=== PATIENT | female | born 1935 | race Caucasian/White ===

== ENCOUNTER 2017-02-02 09:56 | Inpatient (IN) | payer MEDICARE, OTHER ==
--- NOTE | ~2017-02-02 | EGD ---
EGD REPORT [facility] [address] [place]. [address] NAME: NÉSTOR DEL CID : 37 STATUS : ADM IN PAT#: [id number] AGE: 81 ADM/REG DATE : 02/02/17 MR#: [id number] REPORT SERV DATE: 02/04/17 DICTATED BY: EAN HERRERA DATE: 02/04/17 REPORT STATUS : Draft TRANSCRIBED BY: [facility] DATE: 02/04/17 Endoscopy Center Patient Name: Néstor Del Cid Date of : 1935 Attending MD: EAN HERRERA MD Procedure Date No Time: 02/04/2017 Procedure: Upper GI endoscopy Indications: Iron deficiency anemia Referring MD: GURU MARTINEZ Medicines: Propofol per Anesthesia Complications: No immediate complications. Procedure: Pre-Anesthesia Assessment: - ASA Grade Assessment: III - A patient with severe systemic disease. After obtaining informed consent, the endoscope was passed under direct vision. Throughout the procedure, the patient's blood pressure, pulse, and oxygen saturations were monitored continuously. The GIF H190 [id number] was introduced through the mouth, and advanced to the fourth part of duodenum. The upper GI endoscopy was accomplished without difficulty. The patient tolerated the procedure well. Findings: Non-severe esophagitis with no bleeding was found at the gastroesophageal junction. The entire examined stomach was normal. The examined duodenum was normal. Impression: - Non-severe non-erosive esophagitis. - Normal stomach. - Normal examined duodenum. Procedure Code(s): --- Professional --- 43201, Esophagogastroduodenoscopy, flexible, transoral; diagnostic, including collection of specimen(s) by brushing or washing, when performed (separate procedure) Diagnosis Code(s): --- Professional --- K20.8, Other esophagitis D50.9, Iron deficiency anemia, unspecified CPT copyright 2013 [employer]. All rights reserved. EGD REPORT [address] [address] NAME: NÉSTOR DEL CID : 37 STATUS : ADM IN [facility]#: [id number] AGE: 81 ADM/REG DATE : 02/02/17 MR#: [id number] REPORT SERV DATE: 02/04/17 DICTATED BY: EAN HERRERA. DATE: 02/04/17 REPORT STATUS : Draft TRANSCRIBED BY: [employer] DATE: 02/04/17 The codes documented in this report are preliminary and upon patch sander review may be revised to meet current compliance requirements. Ean Herrera MD EAN HERRERA MD 02/04/2017 10:17 AM This report has been signed electronically. Number of Addenda: 1 Note Initiated On: 02/04/2017 9:26 AM Scope Withdrawal Time 0 hours 0 minutes 0 seconds Addendum Number: 1 Addendum Date: 02/04/2017 10:20 AM small bowel biopsy done Ean Herrera MD EAN HERRERA MD 02/04/2017 10:21 AM This report has been signed electronically. [address] [place] [id number]
--- NOTE | ~2017-02-02 | CN ---
Consultation Report [facility] [address] [place]. [address] NAME: NÉSTOR BAINS : 37 STATUS : ADM IN [facility]#: [id number] AGE: 81 ADM/REG DATE : 02/02/17 MR#: [id number] REPORT SERV DATE: 02/05/17 DICTATED BY: EAN HERRERA DATE: 02/03/17 REPORT STATUS : Draft TRANSCRIBED BY: MODL DATE: 02/03/17 CONSULTATION DATE OF CONSULTATION: HISTORY OF PRESENT ILLNESS: This 81-year-old white female known to have a hemoglobin of 4 and was sent to Emergency Room for admission. She had iron levels that were normal. Hemoglobin was normal, but it had apparently been 12 and 10.5 range. EGD was done in September by Dr. Olivera. She was admitted with atrial fibrillation here. She is on meloxicam daily. Last colonoscopy 2003. There were some positive blood levels for celiac disease. She is post hysterectomy. She does not smoke cigarettes. PHYSICAL EXAMINATION: GENERAL: Looks much younger than stated age. CHEST: Clear. CARDIAC: Normal. ABDOMEN: Soft, nontender. IMPRESSION: 1. Severe anemia, mildly microcytic. 2. History of nonsteroidal use. So, I need to be concerned about gastrointestinal blood loss from nonsteroidal use, apparently could be even small bowel blood loss also. PLAN: Suggest EGD, small bowel biopsy, and colonoscopy. MG/ARTUR Ean Herrera M.D. / [id number] CC: Gilberto Tracy M.D.
--- NOTE | ~2017-02-02 | HP ---
History And Physical [place] [id number] [facility] [place]. [address] NAME: NÉSTOR BAINS : 37 STATUS : ADM IN [facility]#: [id number] AGE: 81 ADM/REG DATE : 02/02/17 MR#: [id number] REPORT SERV DATE: 02/02/17 DICTATED BY: LUIS CARLOS CARLOS DATE: 02/02/17 REPORT STATUS : Draft TRANSCRIBED BY: MODJoya DATE: 02/02/17 DATE OF ADMISSION: 02/02/2017 ATTENDING PHYSICIAN: Dr. Silas Peres. REASON FOR ADMISSION: Acute blood loss anemia and rapid atrial fibrillation. HISTORY: This is an 81-year-old, white female, who was in Dr. Oksana Gannon's office in [place] yesterday with weakness in her legs. She yury some lab work who found her hemoglobin to be 4 and sent her to the emergency room for admission. In the emergency room, she had been seen by Dr. Farzad Mukherjee and passed to ok for admission to the hospital. She says the legs have been numb and weak for the last couple of weeks. She started having shortness of breath, dyspnea on exertion, and heart beating fast when she walked to the mailbox, which is not far according to the family. She had iron levels that were normal and hemoglobin that was normal but had gone down from 12 to the 10.5 range. She had an EGD done by Dr. Olivera in September but it was unrevealing. She has been taking care of her who has leukemia and has been taking transfusions and had swelling in her ankles for the last couple weeks as well. On presentation to the emergency room here, Dr. Mukherjee found that she had atrial fibrillation with a rapid ventricular response slowly at rest. Her heart rate in the 120 range and worried about her blood pressure dropping. Limited some of her rate-controlling medicines that they were considering. PAST MEDICAL HISTORY: She has had bilateral knee joint replacements by Dr. Kosta Haywood in the past when talking about a hip joint replacement. She has arthritis in her hands. 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 HOME MEDICATIONS: Include the followin. Meloxicam 15 mg p.o. daily. 2. Levothyroxine 88 mcg p.o. daily. 3. Ondansetron 4 mg as needed for nausea. 4. Nexium 40 mg p.o. daily. 5. Clonazepam 0.5 mg p.o. b.i.d. p.r.n. anxiety. 6. Mometasone 0.1% applied twice a day to rash. 7. Docusate sodium for constipation. 8. Tramadol 50 mg 4 times a day as needed for pain. 9. Lyrica 100 mg p.o. b.i.d. 10.Xalatan 0.005% one drop each eye at bedtime. 11.Triamcinolone cream as needed. She has had some history of anxiety and depression in the past; thyroid problems; irritable bowel syndrome; indigestion; arthritis. Colonoscopy in 2003. Biopsies negative. CT scan of the abdomen by barium swallow in 2009. She has celiac disease by blood levels in June History And Physical [address] [address] NAME: NÉSTOR BAINS : 37 STATUS : ADM IN [facility]#: [id number] AGE: 81 ADM/REG DATE : 02/02/17 MR#: [id number] REPORT SERV DATE: 02/02/17 DICTATED BY: LUIS CARLOS CARLOS DATE: 02/02/17 REPORT STATUS : Draft TRANSCRIBED BY: ARTUR DATE: 02/02/172002 and history of influenza, osteoporosis, and Dr. Argueta has been following her for that. SURGICAL HISTORY: She has had a hysterectomy by Dr. Taylor Mcmanus in the past and BSO; gallbladder surgery in 1999; bilateral knee joint replacements in 2006; carpal tunnel release 2008, Dr. Manning; second toe surgery Dr. Calderón in [facility]. SOCIAL HISTORY: She has 4 children who are alive and well. They live in [place]. She does not attend mu-ism. She does not smoke cigarettes or take any alcohol. Never smoked. Lives in [place]. She had worked in a greenhouse in the past. She drinks water. Never drank alcohol or used drugs. FAMILY HISTORY: Her mother at age 58 of renal cancer. Her father at age 58 of liver cancer from alcoholism; stepfather raised her. She had a brother at 80 with CABG, brother 76, and another brother with cancer. Mother and maternal grandmother of cancer. Her paternal grandmother lived to be 97. REVIEW OF SYSTEMS: She does have chest pain with exertion and now she is comfortable. At this time, no abdominal pain. No unilateral weakness. No fits, seizures, or convulsions. She has had no weight loss, fever, chills, or night sweats. No abdominal pain. She has had some melena recently. No vomiting. The remainder of the review of systems is negative except as above. PHYSICAL EXAMINATION: VITAL SIGNS: Her blood pressure was 114/70 with a heart rate of 109, respiratory rate 18, afebrile. HEENT: EOMI. Sclerae clear. Conjunctivae pale. NECK: No bruit without any JVD. CHEST: Clear. HEART: Irregularly irregular rapid and hyperdynamic. ABDOMEN: Soft and nontender. Bowel sounds positive. EXTREMITIES: Have edema, trace to 1+. Distal pulses are intact with dorsalis pedis posterior tibial. NEUROLOGIC: She does withdraw to plantar stimulation. Certified Orthotist Practice Manager is symmetric bilaterally. Coordination intact. She has no tremor. EXTREMITIES: She does have Heberden's nodes and Jhon's nodes in the right hand with deformity of her digits from the degenerative joint disease in the right hand. Left hand is relatively spared. LABORATORY: Type and screen O negative. Creatinine of 1.35, BUN 22, sodium 142, potassium 4.1, calcium 8.4, albumin is 3.4 with a globulin of 3.0. Liver tests were normal. Hemoglobin 4.2, hematocrit 13.8, white count 4.8, MCV is 78.9 with a platelet count of 214, protime 16 with an INR of 1.4. The monitor shows atrial fibrillation with a rapid ventricular response. Review of the EKG showed nonspecific ST and T-wave changes but no acute abnormality. History And Physical [address] [address] NAME: NÉSTOR BAINS : 37 STATUS : ADM IN [facility]#: [id number] AGE: 81 ADM/REG DATE : 02/02/17 MR#: [id number] REPORT SERV DATE: 02/02/17 DICTATED BY: LUIS CARLOS CARLOS DATE: 02/02/17 REPORT STATUS : Draft TRANSCRIBED BY: MODL DATE: 02/02/17 ASSESSMENT: 1. Gastrointestinal bleeding. Stomach likely. 2. Atrial fibrillation rapid ventricular response with exertion. 3. Angina pectoris with exertion likely from anemia. 4. Degenerative joint disease, hands, hip, left elbow, and with bilateral knee joint replacement with Dr. Haywood. 5. Weakness secondary to acute blood loss anemia. 6. Chronic problems listed above. PLAN: 2 units of red cells. Initially we will start digoxin afterwards as we did not want to lower the blood pressure because of the low blood count and blood loss. We will get Dr. Olivera to follow as he knows her primarily. DB/MODL Luis Carlos Carlos M.D. / [id number] CC: DO Oksana Garcia M.D. John Nash, M.D. Matthew Bagamery, M.D.
--- NOTE | ~2017-02-02 | EGD ---
EGD REPORT [facility] [address] [place]. [address] NAME: NÉSTOR DEL CID : 37 STATUS : ADM IN PAT#: [id number] AGE: 81 ADM/REG DATE : 02/02/17 MR#: [id number] REPORT SERV DATE: 02/04/17 DICTATED BY: EAN HERRERA DATE: 02/04/17 REPORT STATUS : Draft TRANSCRIBED BY: [facility] DATE: 02/04/17 Endoscopy Center Patient Name: Néstor Del Cid Date of : 1935 Attending MD: EAN HERRERA MD Procedure Date No Time: 02/04/2017 Procedure: Upper GI endoscopy Indications: Iron deficiency anemia Referring MD: GURU MARTINEZ Medicines: Propofol per Anesthesia Complications: No immediate complications. Procedure: Pre-Anesthesia Assessment: - ASA Grade Assessment: III - A patient with severe systemic disease. After obtaining informed consent, the endoscope was passed under direct vision. Throughout the procedure, the patient's blood pressure, pulse, and oxygen saturations were monitored continuously. The GIF H190 [id number] was introduced through the mouth, and advanced to the fourth part of duodenum. The upper GI endoscopy was accomplished without difficulty. The patient tolerated the procedure well. Findings: Non-severe esophagitis with no bleeding was found at the gastroesophageal junction. The entire examined stomach was normal. The examined duodenum was normal. Impression: - Non-severe non-erosive esophagitis. - Normal stomach. - Normal examined duodenum. Procedure Code(s): --- Professional --- 83976, Esophagogastroduodenoscopy, flexible, transoral; diagnostic, including collection of specimen(s) by brushing or washing, when performed (separate procedure) Diagnosis Code(s): --- Professional --- K20.8, Other esophagitis D50.9, Iron deficiency anemia, unspecified CPT copyright 2013 [place] [employer]. All rights reserved. EGD REPORT [facility] [address] [place] [address] [place]. [address] NAME: NÉSTOR DEL CID : 37 STATUS : ADM IN [facility]#: [id number] AGE: 81 ADM/REG DATE : 02/02/17 MR#: [id number] REPORT SERV DATE: 02/04/17 DICTATED BY: EAN HERRERA. DATE: 02/04/17 REPORT STATUS : Draft TRANSCRIBED BY: [employer] SERVICES DATE: 02/04/17 The codes documented in this report are preliminary and upon water resource manager review may be revised to meet current compliance requirements. Ean Herrera MD EAN HERRERA MD 02/04/2017 10:17 AM This report has been signed electronically. Number of Addenda: 0 Note Initiated On: 02/04/2017 9:26 AM Scope Withdrawal Time 0 hours 0 minutes 0 seconds [address] [facility] [place] [address]
--- NOTE | ~2017-02-02 | DS ---
Discharge Summary [place] [address] [facility] [place]. [address] NAME: NÉSTOR BAINS : 37 STATUS : DIS IN PAT#: [id number] AGE: 81 ADM/REG DATE : 02/02/17 MR#: [id number] REPORT SERV DATE: 02/06/17 DICTATED BY: LUIS CARLOS CHIN DATE: 02/05/17 REPORT STATUS : Draft TRANSCRIBED BY: MODL DATE: 02/05/17 ADMISSION DATE: 02/02/2017 DISCHARGE DATE: 02/05/2017 DISCHARGE DIAGNOSES: 1. Gastrointestinal bleeding, uncertain etiology at discharge. Outpatient capsule endoscopy to be performed by Dr. Salinas. 2. Severe acute blood loss anemia with admission hemoglobin of 4.2. 3. Paroxysmal atrial fibrillation on presentation with rapid ventricular response. Sinus rhythm at discharge. No anticoagulation at discharge pending capsule endoscopy. 4. Elevated BNP level with echocardiographic findings, normal left ventricular systolic function with EF of 55% to 60%, dilated left atrium, normal right ventricular chamber size and systolic function, mild mitral regurgitation, and moderate pulmonary hypertension with moderate tricuspid regurgitation. Outpatient followup with Dr. Dee planned. 5. Acute kidney injury, present on admission. 6. Chronic kidney disease 3. 7. Iron deficiency with serum ferritin of 18 on 12/07/2016, lab. 8. Osteoarthritis, status post bilateral total knee arthroplasty. 9. Chronic pain syndrome. 10.Chronic nonsteroidal anti-inflammatory drug use. Discontinued at discharge. 11.Hypothyroid, on Synthroid replacement. 12.Systemic hypertension. 13.Anxiety, on chronic benzodiazepines. 14.Hypernatremia, present on admission. 15.Hypokalemia. 16.History of asthma. 17.Edema associated with present illness at least 4 weeks' duration. OPERATIONS AND PROCEDURES: 1. Upper GI endoscopy on 02/04/2017, Dr. Salinas. 2. Colonoscopy on 02/04/2017, Dr. Salinas. PRESENT ILLNESS: This is an 81-year-old white female, who was triaged in the emergency room on 02/02/2017, at 0956 hours complaining of weakness, fatigue, and shortness of breath. Admission vital signs, blood pressure 113/73, temperature 97.7, pulse 147, respirations 22, and O2 saturation 98%. After evaluation in the emergency room, she was found to have a hemoglobin of 4.2, and to be in atrial fibrillation with a rapid ventricular response. She was referred to the Hospitalist Service for admission. She was seen by Dr. Luis Carlos Angulo, and admitted as described on admission history and physical examination. Additional history was that she had been seen in Dr. Oksana Gannon's office because of leg weakness. Her hemoglobin had been drawn and had been near 4. She was referred here. Discharge Summary [address] [address] NAME: NÉSTOR BAINS : 37 STATUS : DIS IN PAT#: [id number] AGE: 81 ADM/REG DATE : 02/02/17 MR#: [id number] REPORT SERV DATE: 02/06/17 DICTATED BY: LUIS CARLOS CHIN DATE: 02/05/17 REPORT STATUS : Draft TRANSCRIBED BY: ARTUR DATE: 02/05/17 She had been having leg numbness and weakness with dyspnea on exertion, tachypalpitations, and edema for the last several weeks. ADDITIONAL HISTORY: Per Dr. Angulo. PHYSICAL EXAMINATION: Per Dr. Angulo. ADMISSION LABORATORY: Per Dr. Angulo. HOSPITAL COURSE: She was admitted by Dr. Angulo with: 1. Gastrointestinal bleeding. 2. Atrial fibrillation with rapid ventricular response. 3. Angina pectoris with exertion, likely from anemia. 4. All of this occurring in the setting of the above-mentioned comorbidities. She was admitted to [address] [place] [address]. Red blood cell resuscitation was initiated. GI consultation was obtained. She spontaneously reverted to sinus rhythm. She maintained sinus rhythm on no medical therapy. An echocardiogram was done with findings as noted above. She had no chest pain post-transfusion therapy and less dyspnea on exertion. Her daughter works in the labeling associate and arrangements will be made for the patient to see Dr. Dee in the outpatient setting. She was transfused with 3 units of packed red blood cells. Her hemoglobin increased to 8.6. It was 8.1 at discharge. Given her iron deficiency, she was given IV Nulecit, which she tolerated well. She was seen in GI consultation by Dr. Salinas. Endoscopic evaluation was recommended. A Protonix drip had been started on admission. On 02/04/2017, she was taken to the endoscopy lab. An upper GI endoscopy showed non-severe esophagitis with no bleeding at the GE junction. The stomach and exam of duodenum were normal. A colonoscopy was performed. The terminal ilium was normal. There were multiple medium mouthed diverticula in the sigmoid colon. No other abnormalities were identified. Post endoscopy, Dr. Salinas recommended diet advancement, no NSAIDs, an outpatient capsule study, and discharge. She was seen by the undersigned on 02/03/2017, 02/04/2017, and 02/05/2017. It was decided post endoscopy on 02/04/2017, to keep her overnight to monitor her rhythm, obtain an echocardiogram and follow up hemoglobin. She remained in sinus rhythm. Her echocardiographic findings were as noted. Her hemoglobins are as noted. Discharge Summary [address] [place]. [address] NAME: NÉSTOR BAINS : 37 STATUS : DIS IN PAT#: [id number] AGE: 81 ADM/REG DATE : 02/02/17 MR#: [id number] REPORT SERV DATE: 02/06/17 DICTATED BY: LUIS CARLOS CHIN DATE: 02/05/17 REPORT STATUS : Draft TRANSCRIBED BY: ARTUR DATE: 02/05/17 On 02/05/2017, she had no nausea or pain. She was ambulatory. Her dyspnea on exertion was less, and she was not having chest pain. She wanted to be discharged with outpatient followup. It was felt she had achieved a level of improvement and stability where she could be safely discharged to home with outpatient followup to see Dr. Gannon in 72 hours for CBC and BMP. She will see Dr. Salinas for capsule endoscopy and follow up with Dr. Dee for further Cardiology evaluation. She was asked to follow a low-sodium diet. MEDICATIONS AT DISCHARGE: Colace 100 mg daily, Synthroid 88 mcg daily, Lyrica 100 mg twice daily, Dexilant 30 mg daily plus additional Nexium 40 mg daily for heartburn, Klonopin 0.5 mg twice daily as needed, multivitamin daily, calcium with vitamin D and K daily, Lasix 40 mg daily plus potassium 20 mEq twice daily, and Ambien at bedtime as needed. She was asked not to use any Mobic or other NSAIDs. DISCHARGE TIME: Greater than 30 minutes. DICTATED BY: Luis Carlos Chin M.D. DD/ARTUR Luis Carlos Chin M.D. / [id number] CC: Gilberto Tracy M.D. Michael Goodman, M.D. Van Stephen Monroe Jr., M.D.
--- NOTE | ~2017-02-02 | EGD ---
EGD REPORT [facility] [address] [place]. [address] NAME: NÉSTOR DEL CID : 37 STATUS : ADM IN PAT#: [id number] AGE: 81 ADM/REG DATE : 02/02/17 MR#: [id number] REPORT SERV DATE: 02/04/17 DICTATED BY: EAN HERRERA DATE: 02/04/17 REPORT STATUS : Draft [facility]ANS[facility]IBED [facility]: [facility] DATE: 02/04/17 Endoscopy Center Patient Name: Néstor Del Cid Date of : 1935 Attending MD: EAN HERRERA MD Procedure Date No Time: 02/04/2017 Procedure: Upper GI endoscopy Indications: Iron deficiency anemia Referring MD: GURU MARTINEZ Medicines: Propofol per Anesthesia Complications: No immediate complications. Procedure: Pre-Anesthesia Assessment: - ASA Grade Assessment: III - A patient with severe systemic disease. After obtaining informed consent, the endoscope was passed under direct vision. Throughout the procedure, the patient's blood pressure, pulse, and oxygen saturations were monitored continuously. The GIF H190 [id number] was introduced through the mouth, and advanced to the fourth part of duodenum. The upper GI endoscopy was accomplished without difficulty. The patient tolerated the procedure well. Findings: Non-severe esophagitis with no bleeding was found at the gastroesophageal junction. The entire examined stomach was normal. The examined duodenum was normal. Impression: - Non-severe non-erosive esophagitis. - Normal stomach. - Normal examined duodenum. Procedure Code(s): --- Professional --- 17324, Esophagogastroduodenoscopy, flexible, transoral; diagnostic, including collection of specimen(s) by brushing or washing, when performed (separate procedure) Diagnosis Code(s): --- Professional --- K20.8, Other esophagitis D50.9, Iron deficiency anemia, unspecified CPT copyright 2013 [employer] [place] [employer]. All rights reserved. EGD REPORT [address] [address] NAME: NÉSTOR DEL CID : 37 STATUS : ADM IN [facility]#: [id number] AGE: 81 ADM/REG DATE : 02/02/17 MR#: [id number] REPORT SERV DATE: 02/04/17 DICTATED BY: EAN HERRERA. DATE: 02/04/17 REPORT STATUS : Draft TRANSCRIBED BY: [employer] SERVICES DATE: 02/04/17 The codes documented in this report are preliminary and upon community service representative review may be revised to meet current compliance requirements. Ean Herrera MD EAN HERRERA MD 02/04/2017 10:17 AM This report has been signed electronically. Number of Addenda: 1 Note Initiated On: 02/04/2017 9:26 AM Scope Withdrawal Time 0 hours 0 minutes 0 seconds Addendum Number: 1 Addendum Date: 02/04/2017 10:20 AM small bowel biopsy done Ean Herrera MD EAN HERRERA MD 02/04/2017 10:21 AM This report has been signed electronically. [address] [place] [id number]
--- NOTE | ~2017-02-02 | EGD ---
EGD REPORT [facility] [address] [place]. [address] NAME: NÉSTOR DEL CID : 37 STATUS : DIS IN PAT#: [id number] AGE: 81 ADM/REG DATE : 02/02/17 MR#: [id number] REPORT SERV DATE: 03/14/17 DICTATED BY: EAN HERRERA DATE: 03/14/17 REPORT STATUS : Draft [facility]IBED [facility]: [facility] DATE: 03/14/17 Endoscopy Center Patient Name: Néstor Del Cid Date of : 1935 Attending MD: EAN HERRERA MD Procedure Date No Time: 02/04/2017 Procedure: Upper GI endoscopy Indications: Iron deficiency anemia Referring MD: GURU MARTINEZ Medicines: Propofol per Anesthesia Complications: No immediate complications. Procedure: Pre-Anesthesia Assessment: - ASA Grade Assessment: III - A patient with severe systemic disease. After obtaining informed consent, the endoscope was passed under direct vision. Throughout the procedure, the patient's blood pressure, pulse, and oxygen saturations were monitored continuously. The GIF H190 [id number] was introduced through the mouth, and advanced to the fourth part of duodenum. The upper GI endoscopy was accomplished without difficulty. The patient tolerated the procedure well. Findings: Non-severe esophagitis with no bleeding was found at the gastroesophageal junction. The entire examined stomach was normal. The examined duodenum was normal. Impression: - Non-severe non-erosive esophagitis. - Normal stomach. - Normal examined duodenum. Procedure Code(s): --- Professional --- 41699, Esophagogastroduodenoscopy, flexible, transoral; diagnostic, including collection of specimen(s) by brushing or washing, when performed (separate procedure) Diagnosis Code(s): --- Professional --- K20.8, Other esophagitis D50.9, Iron deficiency anemia, unspecified CPT copyright 2013 [employer]. All rights reserved. EGD REPORT [address] [place]. [address] NAME: NÉSTOR DEL CID : 37 STATUS : DIS IN PAT#: [id number] AGE: 81 ADM/REG DATE : 02/02/17 MR#: [id number] REPORT SERV DATE: 03/14/17 DICTATED BY: EAN HERRERA. DATE: 03/14/17 REPORT STATUS : Draft TRANSCRIBED BY: [employer] DATE: 03/14/17 The codes documented in this report are preliminary and upon medical biller/coder review may be revised to meet current compliance requirements. Ean Herrera MD EAN HERRERA MD 02/04/2017 10:17 AM This report has been signed electronically. Number of Addenda: 2 Note Initiated On: 02/04/2017 9:26 AM Scope Withdrawal Time 0 hours 0 minutes 0 seconds Addendum Number: 2 Addendum Date: 03/14/2017 11:42 AM Biopsy of the duodenum was taken for celiac disease Ean Herrera MD EAN HERRERA MD 03/14/2017 11:43 AM This report has been signed electronically. Addendum Number: 1 Addendum Date: 02/04/2017 10:20 AM small bowel biopsy done Ean Herrera MD EAN HERRERA MD 02/04/2017 10:21 AM This report has been signed electronically. [address] [place] [address]
--- NOTE | ~2017-02-02 | EGD ---
EGD REPORT [facility] [address]. [address] NAME: NÉSTOR DEL CID : 37 STATUS : ADM IN PAT#: [id number] AGE: 81 ADM/REG DATE : 02/02/17 MR#: [id number] REPORT SERV DATE: 02/04/17 DICTATED BY: EAN HERRERA DATE: 02/04/17 REPORT STATUS : Draft [facility]: [facility] DATE: 02/04/17 Endoscopy Center Patient Name: Néstor Del Cid Date of : 1935 Attending MD: EAN HERRERA MD Procedure Date No Time: 02/04/2017 Procedure: Upper GI endoscopy Indications: Iron deficiency anemia Referring MD: GURU MARTINEZ Medicines: Propofol per Anesthesia Complications: No immediate complications. Procedure: Pre-Anesthesia Assessment: - ASA Grade Assessment: III - A patient with severe systemic disease. After obtaining informed consent, the endoscope was passed under direct vision. Throughout the procedure, the patient's blood pressure, pulse, and oxygen saturations were monitored continuously. The GIF H190 [id number] was introduced through the mouth, and advanced to the fourth part of duodenum. The upper GI endoscopy was accomplished without difficulty. The patient tolerated the procedure well. Findings: Non-severe esophagitis with no bleeding was found at the gastroesophageal junction. The entire examined stomach was normal. The examined duodenum was normal. Impression: - Non-severe non-erosive esophagitis. - Normal stomach. - Normal examined duodenum. Procedure Code(s): --- Professional --- 08519, Esophagogastroduodenoscopy, flexible, transoral; diagnostic, including collection of specimen(s) by brushing or washing, when performed (separate procedure) Diagnosis Code(s): --- Professional --- K20.8, Other esophagitis D50.9, Iron deficiency anemia, unspecified CPT copyright 2013 [employer]. All rights reserved. EGD REPORT [facility] [address] [place] [address] [place]. [address] NAME: NÉSTOR DEL CID : 37 STATUS : ADM IN [facility]#: [id number] AGE: 81 ADM/REG DATE : 02/02/17 MR#: [id number] REPORT SERV DATE: 02/04/17 DICTATED BY: EAN HERRERA. DATE: 02/04/17 REPORT STATUS : Draft TRANSCRIBED BY: [employer] DATE: 02/04/17 The codes documented in this report are preliminary and upon deputy fire chief review may be revised to meet current compliance requirements. Ean Herrera MD EAN HERRERA MD 02/04/2017 10:17 AM This report has been signed electronically. Number of Addenda: 0 Note Initiated On: 02/04/2017 9:26 AM Scope Withdrawal Time 0 hours 0 minutes 0 seconds [address] [facility] [place] [address]
--- NOTE | ~2017-02-02 | EGD ---
EGD REPORT [facility] [address] [place] [address] NAME: NÉSTOR DEL CID : 37 STATUS : ADM IN PAT#: [id number] AGE: 81 ADM/REG DATE : 02/02/17 MR#: [id number] REPORT SERV DATE: 02/04/17 DICTATED BY: EAN HERRERA DATE: 02/04/17 REPORT STATUS : Draft [facility]ANSCRIBED [facility]: [facility] DATE: 02/04/17 Endoscopy Center Patient Name: Néstor Del Cid Date of : 1935 Attending MD: EAN HERRERA MD Procedure Date No Time: 02/04/2017 Procedure: Colonoscopy Indications: Iron deficiency anemia Referring MD: GURU MARTINEZ Medicines: Propofol per Anesthesia Complications: No immediate complications. Procedure: Pre-Anesthesia Assessment: - ASA Grade Assessment: III - A patient with severe systemic disease. After I obtained informed consent, the scope was passed under direct vision. Throughout the procedure, the patient's blood pressure, pulse, and oxygen saturations were monitored continuously. The PCF [id number] was introduced through the anus and advanced to 5 cm into the ileum. The colonoscopy was performed without difficulty. The quality of the bowel preparation was adequate. Findings: The terminal ileum appeared normal. Multiple medium-mouthed diverticula were found in the sigmoid colon. The retroflexed view of the distal rectum and anal verge was normal and showed no anal or rectal abnormalities. There is no endoscopic evidence of mass in the entire colon. Impression: - The examined portion of the ileum was normal. - Diverticulosis in the sigmoid colon. Recommendation: - [facility] to [facility]. - To visualize the small bowel, perform video capsule endoscopy at appointment to be scheduled. Procedure Code(s): --- Professional --- 72142, Colonoscopy, flexible, proximal to splenic flexure; diagnostic, with or without collection of specimen(s) by brushing or washing, with or without colon decompression (separate procedure) Diagnosis Code(s): --- Professional --- K57.30, Diverticulosis of large intestine without EGD REPORT [facility] [address] [place], [place] [address]. [address] NAME: NÉSTOR DEL CID : 37 STATUS : ADM IN [facility]#: [id number] AGE: 81 ADM/REG DATE : 02/02/17 MR#: [id number] REPORT SERV DATE: 02/04/17 DICTATED BY: EAN HERRERA. DATE: 02/04/17 REPORT STATUS : Draft TRANSCRIBED BY: [employer] DATE: 02/04/17 perforation or abscess without bleeding D50.9, Iron deficiency anemia, unspecified CPT copyright 2013 [employer]. All rights reserved. The codes documented in this report are preliminary and upon lunchroom worker review may be revised to meet current compliance requirements. Ean Herrera MD EAN HERRERA MD 02/04/2017 10:19 AM This report has been signed electronically. Number of Addenda: 0 Note Initiated On: 02/04/2017 8:57 AM Scope Withdrawal Time 0 hours 10 minutes 18 seconds [address] [place] [address]
[~2017-02-02 09:56] MED LIST: KLONO1 PO; LYRICA100 MG PO; MOBIC15 MG PO; MULTIVITAMI1 PO; NEXIUM40 PO; STOOL SOFTEN100 MG PO; SYN88 PO; ULTRAM50 PO
[2017-02-02 10:49] LABS: BASOPHILS 0.6 %; BASOPHILS ABSOLUTE 0.03 10/3/uL (0.0-0.16); EOSINOPHILS 3.2 %; EOSINOPHILS ABSOLUTE 0.15 10/3/uL (0.0-0.53); ER CBC TAT 0 Hrs 02 Mins; IMMATURE GRANULOCYTES 0.2 %; IMMATURE GRANULOCYTES ABSOLUTE 0.01 10/3/uL (0.0-0.11); LYMPHOCYTES 15.1 %; LYMPHOCYTES ABSOLUTE 0.72 10/3/uL (0.67-4.30); MEAN CORPUS HGB CONC 30.4 g/dL (32.0-36.0); MEAN PLATELET VOLUME 10.2 fL (9.2-13.0); MONOCYTES 7.4 %; MONOCYTES ABSOLUTE 0.35 10/3/uL (0.21-1.20); NEUTROPHILS 73.5 %; PLATELET COUNT 214 10/3/uL (150-400); RED CELL COUNT 1.75 10/6/uL (4.0-5.6); WHITE BLOOD CELLS 4.8 10/3/uL (4.5-10.5)
[2017-02-02 10:51] LABS: HEMATOCRIT 13.8 % (36.0-48.0); HEMOGLOBIN 4.2 g/dL (12.0-16.0); MEAN CORPUSCULAR VOLUME 78.9 fL (80-100)
[2017-02-02 10:52] LABS: MANUAL DIFF NO %; RBC DISTRIBUTION WIDTH 16.9 % (12.0-16.0)
[2017-02-02 10:55] LABS: INTERNATIONAL NORMAL RATI 1.4 UNITS (-); PARTIAL THROMBO TIME 29.6 SEC (22.5-37.2)
[2017-02-02 11:00] LABS: PROTIME (NOT ORD) 16.6 SEC (12.0-14.5)
[2017-02-02 11:05] LABS: ALBUMIN 3.4 G/DL (3.5-5.0); BUN (BLOOD UREA NITROGEN) 22 MG/DL (6-23); CALCIUM, SERUM 8.4 MG/DL (8.5-10.4); CHLORIDE, SERUM 110 MMOL/L (96-112); CO2 (CARBON DIOXIDE) 27 MMOL/L (24-34); CREATININE 1.35 MG/DL (0.55-1.02); GFR AFRICAN AMERICAN 43 ML/MIN (>=60); GFR NON AFRICAN AMERICAN 37 ML/MIN (>=60); GLUCOSE, SERUM 93 MG/DL (60-99); POTASSIUM, SERUM 4.1 MMOL/L (3.5-5.3); SGOT(AST) 20 U/L (5-40); SGPT(ALT) 19 U/L (5-65); SODIUM, SERUM 142 MMOL/L (135-148); TOTAL BILIRUBIN 0.4 MG/DL (0-1.2); TOTAL PROTEIN 6.4 G/DL (6.0-8.5)
[2017-02-02 11:06] LABS: A/G RATIO 1.1 (0.7-1.9); ALKALINE PHOSPHATASE 89 U/L (45-117)
[2017-02-02] MEDS ORDERED: NEXIUM40 PO (11:26)
[2017-02-02] MEDS ORDERED: KLONO5 PO (11:26)
[2017-02-02] MEDS ORDERED: LYRICA100 MG PO (11:26)
[2017-02-02] MEDS ORDERED: KAPIDEX30 MG PO (11:28)
[2017-02-02] MEDS ORDERED: SYN88 PO (11:34)
[2017-02-02] MEDS ORDERED: MOBIC15 MG PO (11:34)
[2017-02-02] MEDS ORDERED: THERGRANM PO (11:34)
[2017-02-02] MEDS ORDERED: XALAT OPH (11:35)
[2017-02-02] MEDS ORDERED: AMB5 PO (11:35)
[2017-02-02] MEDS ORDERED: VIACTIV (11:35)
[2017-02-02] MEDS ORDERED: DSS PO (11:35)
[2017-02-02 17:22] LABS: HEMATOCRIT 17.4 % (36.0-48.0); HEMOGLOBIN 5.5 g/dL (12.0-16.0)
[2017-02-03 04:04] LABS: HEMATOCRIT 25.8 % (36.0-48.0); HEMOGLOBIN 8.5 g/dL (12.0-16.0)
[2017-02-03 10:53] LABS: HEMATOCRIT 26.2 % (36.0-48.0); HEMOGLOBIN 8.6 g/dL (12.0-16.0)
[2017-02-03 21:41] LABS: HEMATOCRIT 26.8 % (36.0-48.0); HEMOGLOBIN 8.6 g/dL (12.0-16.0)
[2017-02-04 03:20] LABS: BASOPHILS 0.4 %; BASOPHILS ABSOLUTE 0.03 10/3/uL (0.0-0.16); EOSINOPHILS 2.2 %; EOSINOPHILS ABSOLUTE 0.16 10/3/uL (0.0-0.53); HEMATOCRIT 24.1 % (36.0-48.0); HEMOGLOBIN 7.7 g/dL (12.0-16.0); IMMATURE GRANULOCYTES ABSOLUTE 0.07 10/3/uL (0.0-0.11); LYMPHOCYTES 11.2 %; MANUAL DIFF NO %; MEAN CORPUSCULAR HEMOGLOB 25.9 pg (26.0-34.0); MEAN CORPUSCULAR VOLUME 81.1 fL (80-100); MEAN PLATELET VOLUME 10.9 fL (9.2-13.0); MONOCYTES 7.2 %; MONOCYTES ABSOLUTE 0.51 10/3/uL (0.21-1.20); NEUTROPHILS ABSOLUTE 5.55 10/3/uL (2.02-8.40); PLATELET COUNT 172 10/3/uL (150-400); RBC DISTRIBUTION WIDTH 16.5 % (12.0-16.0); RED CELL COUNT 2.97 10/6/uL (4.0-5.6); WHITE BLOOD CELLS 7.1 10/3/uL (4.5-10.5)
[2017-02-04 03:26] LABS: PARTIAL THROMBO TIME 31.5 SEC (22.5-37.2)
[2017-02-04 03:27] LABS: INTERNATIONAL NORMAL RATI 1.4 UNITS (-); PROTIME (NOT ORD) 16.8 SEC (12.0-14.5)
[2017-02-04 03:46] LABS: CALCIUM, SERUM 7.9 MG/DL (8.5-10.4); CHLORIDE, SERUM 114 MMOL/L (96-112); CO2 (CARBON DIOXIDE) 26 MMOL/L (24-34); CREATININE 0.96 MG/DL (0.55-1.02); GFR AFRICAN AMERICAN 65 ML/MIN (>=60); GFR NON AFRICAN AMERICAN 56 ML/MIN (>=60); POTASSIUM, SERUM 3.3 MMOL/L (3.5-5.3); SODIUM, SERUM 148 MMOL/L (135-148); TROPONIN I 0.03 NG/ML (<0.05)
[2017-02-04 03:47] LABS: BUN (BLOOD UREA NITROGEN) 12 MG/DL (6-23); GLUCOSE, SERUM 73 MG/DL (60-99)
[2017-02-04 12:05] LABS: HEMATOCRIT 25.3 % (36.0-48.0); HEMOGLOBIN 8.2 g/dL (12.0-16.0)
[2017-02-04 20:43] LABS: HEMATOCRIT 24.6 % (36.0-48.0); HEMOGLOBIN 7.9 g/dL (12.0-16.0)
[2017-02-05 04:54] LABS: BASOPHILS 0.6 %; BASOPHILS ABSOLUTE 0.04 10/3/uL (0.0-0.16); EOSINOPHILS 4.2 %; HEMATOCRIT 23.8 % (36.0-48.0); HEMOGLOBIN 7.3 g/dL (12.0-16.0); IMMATURE GRANULOCYTES ABSOLUTE 0.07 10/3/uL (0.0-0.11); LYMPHOCYTES 15.1 %; LYMPHOCYTES ABSOLUTE 1.07 10/3/uL (0.67-4.30); MEAN CORPUS HGB CONC 30.7 g/dL (32.0-36.0); MEAN CORPUSCULAR HEMOGLOB 25.5 pg (26.0-34.0); MEAN CORPUSCULAR VOLUME 83.2 fL (80-100); MEAN PLATELET VOLUME 10.7 fL (9.2-13.0); MONOCYTES 8.6 %; MONOCYTES ABSOLUTE 0.61 10/3/uL (0.21-1.20); NEUTROPHILS 70.5 %; NEUTROPHILS ABSOLUTE 4.99 10/3/uL (2.02-8.40); PLATELET COUNT 167 10/3/uL (150-400); RBC DISTRIBUTION WIDTH 17.1 % (12.0-16.0); RED CELL COUNT 2.86 10/6/uL (4.0-5.6); WHITE BLOOD CELLS 7.1 10/3/uL (4.5-10.5)
[2017-02-05 04:55] LABS: MANUAL DIFF NO %
[2017-02-05 05:11] LABS: BUN (BLOOD UREA NITROGEN) 8 MG/DL (6-23); CALCIUM, SERUM 7.8 MG/DL (8.5-10.4); CHLORIDE, SERUM 114 MMOL/L (96-112); CO2 (CARBON DIOXIDE) 25 MMOL/L (24-34); CREATININE 0.83 MG/DL (0.55-1.02); GFR AFRICAN AMERICAN 77 ML/MIN (>=60); GFR NON AFRICAN AMERICAN 67 ML/MIN (>=60); GLUCOSE, SERUM 76 MG/DL (60-99); POTASSIUM, SERUM 3.8 MMOL/L (3.5-5.3); SODIUM, SERUM 145 MMOL/L (135-148)
[2017-02-05 12:15] LABS: HEMATOCRIT 25.9 % (36.0-48.0); HEMOGLOBIN 8.1 g/dL (12.0-16.0)
[2017-02-05] MEDS ORDERED: KLOR-CON20 MEQ PO (15:31)
[2017-02-05] MEDS ORDERED: L40 PO (15:32)
[2017-03-15] MEDS ORDERED: MEDS (10:42)
[2017-05-04] MEDS ORDERED: SYN88 PO (17:12)
[2017-05-04] MEDS ORDERED: KAPIDEX30 MG PO (17:13)
[2017-05-04] MEDS ORDERED: LYRICA100 MG PO (17:13)
[2017-05-04] MEDS ORDERED: KLONO5 PO (17:13)
[2017-05-04] MEDS ORDERED: XALAT OPH (17:14)
[2017-05-04] MEDS ORDERED: ACET500CAP PO (17:14)
[2017-05-04] MEDS ORDERED: L40 PO (17:14)
[2017-05-05] MEDS ORDERED: FOLIC PO (17:08)
== END 2017-02-05 16:00 | disposition home or self-care (01) | DRG 378 ==
LOC: ER 09:56 → 6NO 13:04
PROVIDERS: Emergency Medicine; Internal Medicine; Internal Medicine Gastroenterology
PROC: 30233N1 Transfusion of Nonautologous Red Blood Cells into Peripheral Vein, Percutaneous Approach (ICD-10-PCS; principal; 2017-02-02)
PROC: 0DJ08ZZ Inspection of Upper Intestinal Tract, Via Natural or Artificial Opening Endoscopic (ICD-10-PCS; 2017-02-04)
PROC: 0DJD8ZZ Inspection of Lower Intestinal Tract, Via Natural or Artificial Opening Endoscopic (ICD-10-PCS; 2017-02-04 09:45)
DX: K92.2 Gastrointestinal hemorrhage, unspecified (principal); D62 Acute posthemorrhagic anemia; N17.9 Acute kidney failure, unspecified; E87.0 Hyperosmolality and hypernatremia; I27.2 Other secondary pulmonary hypertension; K90.0 Celiac disease; F41.9 Anxiety disorder, unspecified; F32.9 Major depressive disorder, single episode, unspecified; I48.0 Paroxysmal atrial fibrillation; K20.8 Other esophagitis; I08.1 Rheumatic disorders of both mitral and tricuspid valves; E03.9 Hypothyroidism, unspecified; I12.9 Hypertensive chronic kidney disease with stage 1 through stage 4 chronic kidney disease, or unspecified chronic kidney disease; N18.3 Chronic kidney disease, stage 3 (moderate); G89.4 Chronic pain syndrome; J45.909 Unspecified asthma, uncomplicated; K57.30 Diverticulosis of large intestine without perforation or abscess without bleeding; Z90.710 Acquired absence of both cervix and uterus; Z96.653 Presence of artificial knee joint, bilateral
CPT/HCPCS: 36415; 80048; 80053; 82962; 83735; 83880; 84132; 84484; 85014; 85018; 85025; 85610; 85730; 86850; 86900; 86901; 86920; 88305; 93005; 93306; 96365; 96366; 99285; A9270-GY; C9113; J0360; J1170; J2916; P9016